=== PATIENT | male | born 1970 | race Caucasian/White ===

== ENCOUNTER → 2020-09-08 10:18 | Outpatient (CLI) | payer BC, SELFPAY ==
--- NOTE | ~2020-09-08 | XR_ITS ---
XR chest 2V DATE: 09/08/2020 10:32 INDICATION: Chest pain TECHNIQUE: PA and lateral views COMPARISON: 08/24/2013 CT abdomen pelvis FINDINGS: There is probable discoid scarring in the right lower lung zone, similar findings noted on 08/21/2013 CT abdomen pelvis examination lung windows. No active infiltrate or consolidation, pleural effusion or pulmonary vascular congestion or pneumotho rax is detected. Normal heart size. No hilar or mediastinal enlargement. Included skeletal structures are unremarkable other than mild degenerative spurring of the thoracic s pine. IMPRESSION: Likely chronic discoid scarring in the right lower lobe; no active cardiopulmonary diseas e Reviewed, dictated and finalized at location A. IMPRESSION: Likely chronic discoid scarring in the right lower lobe; no active cardiopulmonary disease
== END ==
PROVIDERS: PCP Nurse Practitioner Family; Visit Provider Nurse Practitioner Family
DX: R07.9 Chest pain, unspecified (principal)
CPT/HCPCS: 71046

== ENCOUNTER 2020-09-21 08:40 | Outpatient (CLI) | payer BC, SELFPAY ==
--- NOTE | ~2020-09-21 | US_ITS ---
EXAMINATION: US soft tissue abdomen DATE: 09/21/2020 10:28 INDICATION: Right groin pain. TECHNIQUE: Multiple grayscale and Doppler ultrasound images of the abdomen were obtained. COMPARISON: CT abdomen and pelvis 08/21/2013 FINDINGS: There is no abnormal mass, hernia, or lymphadenopathy in the right inguinal region. IMPRESSION: 1. No etiology for the patient's symptoms. Reviewed, dictated and finalized at location A.
--- NOTE | 2020-09-21 09:15 | EST_ITS ---
Patient Info Name: Mahamed Lockett Age: 50 years : 1970 Gender: Male Ht: 72 in Wt: 250 lbs BSA: 2.44 m2 Exam Date: 09/21/2020 9:32 AM Exam Location: [facility] Stress Patient Status: Outpatient Admit Date: 09/21/2020 Staff Ordering Physician: Santa Rocha NP Attending Provider: Santa Rocha NP Exercise Technologist: Marce Vazquez RDCS Exercise Physician: Yfn Sommer DO Exam Type: CA stress test treadmill Study Info Indications R07.9 - Chest pain, unspecified A treadmill exercise stress test was performed. Summary 1. 1. Negative Ziyad exercise stress test for ischemic ST changes by ECG criteria. 2. 2. Good functional capacity, achieving 10 METs of workload. 3. 3. Appropriate HR response to exercise. 4. 4. Appropriate HR recovery at 1 minute post exercise. 5. 5. No imaging with stress testing. 6. 6. Patient informed of the above results. Protocol: Ziyad Stress ECG Details Stage: REST Duration (min): 1 min : 0 sec Speed (mph): 0.0 Grade (%): 0 HR (bpm): 64 SBP (mmHg): 129 DBP (mmHg): 85 METS: --- Stage: REST Duration (min): 4 min : 41 sec Speed (mph): 0.0 Grade (%): 0 HR (bpm): 61 SBP (mmHg): 129 DBP (mmHg): 85 METS: --- Stage: STAGE 1 Duration (min): 1 min : 0 sec Speed (mph): 1.7 Grade (%): 10 HR (bpm): 94 SBP (mmHg): 129 DBP (mmHg): 85 METS: --- Stage: STAGE 1 Duration (min): 2 min : 0 sec Speed (mph): 1.7 Grade (%): 10 HR (bpm): 100 SBP (mmHg): 129 DBP (mmHg): 85 METS: --- Stage: STAGE 1 Duration (min): 3 min : 0 sec Speed (mph): 1.7 Grade (%): 10 HR (bpm): 104 SBP (mmHg): 151 DBP (mmHg): 70 METS: --- Stage: STAGE 2 Duration (min): 1 min : 0 sec Speed (mph): 2.5 Grade (%): 12 HR (bpm): 120 SBP (mmHg): 151 DBP (mmHg): 70 METS: --- Stage: STAGE 2 Duration (min): 2 min : 0 sec Speed (mph): 2.5 Grade (%): 12 HR (bpm): 127 SBP (mmHg): 183 DBP (mmHg): 79 METS: --- Stage: STAGE 2 Duration (min): 3 min : 0 sec Speed (mph): 2.5 Grade (%): 12 HR (bpm): 131 SBP (mmHg): 183 DBP (mmHg): 79 METS: --- Stage: STAGE 3 Duration (min): 1 min : 0 sec Speed (mph): 3.4 Grade (%): 14 HR (bpm): 149 SBP (mmHg): 200 DBP (mmHg): 82 METS: --- Stage: STAGE 3 Duration (min): 2 min : 0 sec Speed (mph): 3.4 Grade (%): 14 HR (bpm): 157 SBP (mmHg): 200 DBP (mmHg): 82 METS: --- Stage: STAGE 3 Duration (min): 3 min : 0 sec Speed (mph): 3.4 Grade (%): 14 HR (bpm): 159 SBP (mmHg): 183 DBP (mmHg): 88 METS: --- Stage: RECOVERY Duration (min): 0 min : 59 sec Speed (mph): 0.0 Grade (%): 0 HR (bpm): 119 SBP (mmHg): 171 DBP (mmHg): 84 METS: --- Stage: RECOVERY Duration (min): 1 min : 59 sec Speed (mph): 0.0
== END 2020-09-21 08:41 | disposition home or self-care (01) ==
PROVIDERS: PCP Family Medicine; Visit Provider Nurse Practitioner Family
DX: R10.31 Right lower quadrant pain (principal); Z87.19 Personal history of other diseases of the digestive system; Z98.890 Other specified postprocedural states; R07.9 Chest pain, unspecified; R68.89 Other general symptoms and signs
CPT/HCPCS: 76705; 93017

== ENCOUNTER → 2021-12-08 13:37 | Outpatient (CLI) | payer BC, SELFPAY ==
--- NOTE | ~2021-12-08 | XR_ITS ---
EXAMINATION: XR knee LT min 4V DATE: 12/08/2021 13:51 INDICATION: Left knee pain. TECHNIQUE: 4 views of left knee were obtained. COMPARISON: None. FINDINGS: Bone alignment is normal. No fracture. There is mild tricompartmental osteoarthritis charac terized by tiny osteophytes. No joint space narrowing. There is an enthesophyte at origin of medial c ollateral ligament. No knee joint effusion. IMPRESSION: 1. Mild left knee osteoarthritis. Reviewed, dictated and finalized at location A.
== END ==
PROVIDERS: PCP Nurse Practitioner Family; Visit Provider Nurse Practitioner Family
DX: M17.12 Unilateral primary osteoarthritis, left knee (principal)
CPT/HCPCS: 73564

== ENCOUNTER 2022-03-26 10:39 | Outpatient (CLI) | payer BC, SELFPAY ==
--- NOTE | ~2022-03-26 | MR_ITS ---
MRI of the left knee Clinical history: Pain Technique: Coronal proton density and proton density-weighted images, sagittal proton-density and T2 fat-sat images, and axial proton-density fat-saturated images were acquired. Findings: Anterior and posterior cruciate ligaments are intact. Medial collateral ligament and the la teral collateral ligament complex are intact. Popliteus tendon is intact. There is horizontal tear of the posterior horn of the medial meniscus extending into the body segment . No lateral meniscal tear identified. Articular cartilage is well preserved throughout the knee. Bone marrow signals are unremarkable. Extensor mechanism is intact. Small joint effusion is present with [id number] Conklin's cyst. Th ere is mild prepatellar subcutaneous soft tissue edema, nonspecific. Impression: Horizontal tear of the posterior horn of the medial meniscus extending to the body segment. Small joint effusion with ifsyf-je-elpvyhmv Conklin's cyst. Nonspecific mild prepatellar subcutaneous soft tissue edema. Reviewed, dictated and finalized at [facility]. [employer]K DES[employer]ER Impression: Horizontal tear of the posterior horn of the medial meniscus extending to the b pedro luis segment. Small joint effusion with [id number]-nf-ahymsfsy Conklin's cyst. Nonspecific mild prepatellar subcutaneous soft tissue edema.
== END 2022-03-26 10:40 | disposition home or self-care (01) ==
PROVIDERS: PCP Nurse Practitioner Family; Visit Provider Nurse Practitioner
DX: S83.242A Other tear of medial meniscus, current injury, left knee, initial encounter (principal); M25.462 Effusion, left knee; R60.9 Edema, unspecified; M71.22 Synovial cyst of popliteal space [Baker], left knee
CPT/HCPCS: 73721

== ENCOUNTER 2024-06-06 00:26 | Day surgery (SDC) | payer BC, SELFPAY ==
[2024-06-02 10:11] VITALS: BMI 28.9
--- NOTE | 2024-06-03 09:33 | PC.NURSE ---
Spoke with patient regarding medication Xarelto. Patient verbalizes understanding that the last dose is to be taken on 06/03/2024 and the Endoscopist will instruct them when to restart after the procedure.
--- OUTSIDE RECORDS SUMMARY | 2024-06-06 00:29 | XMS_ITS | Clinical Summary ---
Author Organization [facility] Address [address] [place] [address] Care Team Providers Care Computing Consultant Name Role Phone Christian Onofre MD Primary Care Provider Mukul moeller Allergies No known active allergies Medications warfarin 7.5 MG tablet Take 7.5 mg by mouth daily. Active Social History Tobacco Use Types Packs/Day Years Used Date Smoking Tobacco: Never Smokeless Tobacco: Never Alcohol Use Standard Drinks/Week Comments Yes 0 (1 standard drink = 0.6 oz pur e alcohol) socially Sex and Gender Information Value Date Recorded Sex Assigned at Not on file Legal Sex Male 7:13 PM CDT Gender Identity Not on file Sexual Orientation Not on file Last Filed Vital Signs Vital Sign Reading Time Taken Comments Blood Pressure 144/82 11/22/2018 11:48 AM CDT Pulse 66 11/22/2018 11:48 AM CDT Temperature 36.8 C (98.2 F) 11/22/2018 11:48 AM CDT Respiratory Rate 15 11/22/2018 11:48 AM CDT Oxygen Saturation 100% 11/22/2018 11:48 AM CDT Inhaled Oxygen Concentration - - Weight 104.3 kg (230 lb) 11/22/2018 11:48 AM CDT Height 185.4 cm (6' 1 ) 11/22/2018 11:48 AM CDT Body Mass Index 30.34 11/22/2018 11:48 AM CDT Plan of Treatment Health Maintenance Due Date Last Done Comments Colorectal Cancer Screening Colonoscopy (10 Years) 1970 Annual Physical 05/19/1971 Hepatitis C 1986 DTaP, Tdap and Td Vaccines ( 1 - Tdap) 05/19/1987 Hepatitis B Vaccines (1 of 3 - 19+ 3-dose series) 05/19/1987 Pneumococcal Vaccine: 50+ Ye ars (1 of 1 - PCV) 2018 Zoster Vaccines (1 of 2) 2018 COVID-19 Vaccine (1 - 2023-2 5 season) 2023 Meningococcal B Vaccine Aged Out No l onger eligible based on patient's age to complete this topic Meningococcal Vaccine Aged Out No manjit mayito eligible based on patient's age to complete this topic RSV Immunizations Under 20 Months Aged Out No longer eligible based on patient's age to complete this topic Insurance Care Teams Computing Consultant Relationship Specialty Start Date End Date Christian Onofre MD PCP - General INTERNAL MEDICINE 08/09/18
[2024-06-06 08:10] VITALS: BP 131/81; PULSE 82; RESP 20; TEMP 36.1; O2SAT 99; BMI 27.6
[2024-06-06] MEDS: LACTATED RINGERS 1,000 ML 150 ML IV CONT (08:18)
--- NOTE | 2024-06-06 08:18 | WPDANESEPPF ---
Anes - Initial Pre Proc Eval Procedure: Operation Date: 06/06/24 09:30 Proposed Procedures p Colonoscopy - Ramon Yates MD Date/Time: 06/06/24 08:18 Surgeon: Ramon Yates MD Pre Op Diagnosis: hx of colon polyps Patient Data Age: 54 Gender: M Height: 1.88 m Weight: 97.6 kg Last Vital Signs Temp 36.1 C L 06/06/24 08:10 Pulse 82 06/06/24 08:10 Resp 20 06/06/24 08:10 BP 131/81 06/06/24 08:10 Pulse Ox 99 06/06/24 08:10 O2 Del Method Room Air 06/06/24 08:10 Allergies Allergy/AdvReac Type Severity Reaction Status Date / Time iodine Allergy Unknown Rash Verified 06/06/24 08:08 Home Medications ?Medication ?Instructions ?Recorded ?Confirmed ?Type multivitamin 1 tablet PO DAILY 01/20/22 06/06/24 History omega-3 fatty acids 1,000 mg 1,000 mg PO DAILY 01/20/22 06/06/24 History capsule Xarelto 10 mg tablet (rivaroxaban) 10 mg PO DAILY #30 tabs 05/24/23 06/06/24 Rx atorvastatin 40 mg tablet 40 mg PO DAILY #90 tabs 08/20/23 06/06/24 Rx cholecalciferol (vitamin D3) 1,250 1,250 mcg PO WEEKLY #12 caps 02/04/24 06/06/24 Rx mcg (50,000 unit) capsule metronidazole 1 % topical gel 1 applic topical QHS #60 grams 03/05/24 06/06/24 Rx Patient hx anesthesia problems: none Family hx anesthesia problems: none Results Review: All pre-operative results and documents have been reviewed as part of the pre-operative evaluation. [facility] Past Medical History Medical History Sore throat Rhinitis Rosacea Elevated blood pressure reading in office with diagnosis of hypertension Leg cramps Lesion of nose Rash Localized swelling, mass and lump, right lower limb Edema of right lower extremity Multiple joint pain History of blood clots BMI 33.0-33.9,adult Left knee pain Lumbago Elevated fasting glucose Recurrent deep vein thrombosis (DVT) Snoring BMI 32.0-32.9,adult Encounter to establish care Internal hemorrhoids Decreased exercise tolerance Hypersomnia Chronic anticoagulation Right groin pain Chest pain Other pulmonary embolism without acute cor pulmonale Personal history of other venous thrombosis and embolism H/O adenomatous polyp of colon Surgical History Surgical History History of back surgery History of vasectomy S/P right inguinal hernia repair Family History Family History Mother Family history of blood dyscrasia Thyroid disorder Grandparent Alcoholism Cancer Heart disease Thyroid disorder Father Heart disease Social History Social History Smoking status: Never smoker Second hand tobacco smoke exposure: No Alcohol intake: former Alcohol use details: socially Substance use: never Substance use type: does not use Lack of Transportation: No Lack of Food: Never True Current Housing: I Have Housing Concerned About Future Housing: No Difficulty Paying Gas/Electric Bills: No Difficulty Paying for Meds: No Education: Associate Degree Difficulty w/ Childcare or Family Care: No Living arrangements: with family 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 Informed Consent: The patient's anesthetic plan and its attendant risks and benefits were discussed with the patient/family/POA. Questions were solicited and answers provided to the satisfaction of the patient/family/POA.
--- NOTE | 2024-06-06 08:19 | PM.HPGS ---
History of Present Illness History of Present Illness Consent: Risks, benefits, and alternatives have been discussed and questions answered. Patient agrees to proceed with procedure. Chief complaint: hx of colon polyps Narrative: Mahamed Lockett is a 54 year old male with colon polyp in 2019 Review of Systems Review of Systems: All systems reviewed & are unremarkable except as noted in HPI and below PMFSH Past Medical History Medical History Sore throat Rhinitis Rosacea Elevated blood pressure reading in office with diagnosis of hypertension Leg cramps Lesion of nose Rash Localized swelling, mass and lump, right lower limb Edema of right lower extremity Multiple joint pain History of blood clots BMI 33.0-33.9,adult Left knee pain Lumbago Elevated fasting glucose Recurrent deep vein thrombosis (DVT) Snoring BMI 32.0-32.9,adult Encounter to establish care Internal hemorrhoids Decreased exercise tolerance Hypersomnia Chronic anticoagulation Right groin pain Chest pain Other pulmonary embolism without acute cor pulmonale Personal history of other venous thrombosis and embolism H/O adenomatous polyp of colon Surgical History Surgical History History of back surgery History of vasectomy S/P right inguinal hernia repair Family History Family History Mother Family history of blood dyscrasia Thyroid disorder Grandparent Alcoholism Cancer Heart disease Thyroid disorder Father Heart disease Social History Social History Smoking status: Never smoker Second hand tobacco smoke exposure: No Alcohol intake: former Alcohol use details: socially Substance use: never Substance use type: does not use Lack of Transportation: No Lack of Food: Never True Current Housing: I Have Housing Concerned About Future Housing: No Difficulty Paying Gas/Electric Bills: No Difficulty Paying for Meds: No Education: Associate Degree Difficulty w/ Childcare or Family Care: No Living arrangements: with family 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 Spiritual care concerns: No Meds Home Medications and Allergies Home Medications ?Medication ?Instructions ?Recorded ?Confirmed ?Type multivitamin 1 tablet PO DAILY 01/20/22 06/06/24 History omega-3 fatty acids 1,000 mg 1,000 mg PO DAILY 01/20/22 06/06/24 History capsule Xarelto 10 mg tablet (rivaroxaban) 10 mg PO DAILY #30 tabs 05/24/23 06/06/24 Rx atorvastatin 40 mg tablet 40 mg PO DAILY #90 tabs 08/20/23 06/06/24 Rx cholecalciferol (vitamin D3) 1,250 1,250 mcg PO WEEKLY #12 caps 02/04/24 06/06/24 Rx mcg (50,000 unit) capsule metronidazole 1 % topical gel 1 applic topical QHS #60 grams 03/05/24 06/06/24 Rx Allergies Allergy/AdvReac Type Severity Reaction Status Date / Time iodine Allergy Unknown Rash Verified 06/06/24 08:08 Vital Signs Vital Signs - 24 hr 06/06/24 08:10 Temperature 96.9 F L Pulse Rate 82 Respiratory Rate 20 Blood Pressure 131/81 Pulse Oximetry 99 Oxygen Delivery Room Air Exam Const: General: comfortable and no acute distress HENMT: Face/Nose/Sinus: Normal nares present Eyes: General: appearance normal, both eyes and all related structures Neck: Neck: no JVD Resp: Auscultation: clear to auscultation bilaterally Cardio: Rate: regular rate Rhythm: regular rhythm GI: Inspection: non-distended GI Palp: Yes Soft to palpation Skin: General skin exam: normal color Neuro: General: gait normal Speech: normal speech Extrem: General: normal to inspection Psych: Mental Status: mental status grossly normal Assessment and Plan Assessment and plan (1) H/O adenomatous polyp of colon: Code(s): Z86.010 - Personal history of colon polyps Status: Acute Assessment and Plan: colonoscopy
[2024-06-06 08:36] VITALS: BP 105/68; PULSE 65; RESP 20; O2SAT 98
[2024-06-06 08:46] VITALS: BP 108/68; PULSE 71; RESP 21; O2SAT 98
[2024-06-06 08:56] VITALS: BP 117/80; PULSE 60; RESP 21; O2SAT 98
== END 2024-06-06 09:04 | disposition home or self-care (01) ==
PROVIDERS: PCP Nurse Practitioner Family; Referring Provider Nurse Practitioner Family; Visit Provider Internal Medicine Gastroenterology
PROC: 0DJD8ZZ Inspection of Lower Intestinal Tract, Via Natural or Artificial Opening Endoscopic (ICD-10-PCS; CPT 45378; principal; 2024-06-06 09:30)
DX: Z12.11 Encounter for screening for malignant neoplasm of colon (principal); K63.5 Polyp of colon; K64.8 Other hemorrhoids
CPT/HCPCS: 45385; 88305; J2704; J7120